=== PATIENT | female | born 1955 | race Caucasian/White ===

== ENCOUNTER 2017-06-18 09:13 | Day surgery (SDC) | payer BC ==
[2017-06-16 15:30] VITALS: BMI 22.5
[~2017-06-18 09:13] MED LIST: HYDROmorphone 0.5 MG/0.5 ML SYRINGE IVP PRN; LACTATED RINGERS 1,000 ML IV SCH; ONDANSETRON 4 MG/2 ML VIAL IVP PRN
[2017-06-18 09:40] VITALS: RESP 16; TEMP 97
[2017-06-18] MEDS ORDERED: PROPOFOL 10 MG/ML 20 ML VIAL IV ONE (10:31)
--- NOTE | 2017-06-18 10:51 | P.PCN ---
Date of Procedure: 06/18/17 Procedure(s) Performed: BRIEF HISTORY: Patient is a 62-year-old pleasant white female, scheduled for an elective colonoscopy as a part of evaluation of change in bowel habits. She is been having chronic diarrhea for several months duration. Usually has 3-4 loose watery bowel movements daily. Denies any blood or mucus in the stool. PROCEDURE PERFORMED: Colonoscopy with biopsies. PREOPERATIVE DIAGNOSIS: Chronic diarrhea IV sedation per Anesthesia. PROCEDURE: After informed consent was obtained, the patient, was brought into the endoscopy unit. IV sedation was administered by Anesthesia under continuous monitoring. Digital rectal examination was normal. Initially the Olympus CF- 160 flexible video colonoscope was then inserted in the rectum, gradually advanced into the cecum without any difficulty. Careful examination was performed as the scope was gradually being withdrawn. Ileocecal valve and the appendiceal orifice were visualized and appeared normal. Prep was excellent. Mucosa of the cecum, ascending colon, transverse colon, descending colon, sigmoid colon, and rectum appeared normal. Retroflexion was performed in the rectum and no lesions were seen. Random biopsies were done from ascending and descending colon to rule out microscopic/collagenous colitis. The patient tolerated the procedure well. IMPRESSION: Normal-appearing colon from rectum to cecum with no evidence of colitis or colorectal neoplasia.. RECOMMENDATIONS: Findings of this examination were discussed with the patient as well as a family. She was advised to follow with the biopsy results. She can have a repeat screening colonoscopy in 10 years..
[2017-06-18 11:13] VITALS: PULSE 73
[2017-06-18 11:31] VITALS: BP 114/62
[2017-06-18 18:37] LABS: Gliadin AB IgA, Unit 0.7 U/mL
== END 2017-06-18 11:54 | disposition home or self-care (01) ==
LOC: ORWHC2ENDO 09:13
PROVIDERS: ATTEND Internal Medicine Gastroenterology
DX: K52.9 Noninfective gastroenteritis and colitis, unspecified (principal); E07.9 Disorder of thyroid, unspecified; Z88.0 Allergy status to penicillin; Z88.2 Allergy status to sulfonamides; Z79.82 Long term (current) use of aspirin
CPT/HCPCS: 45380; 88305; 83516 ×4; J2704

== ENCOUNTER → 2018-02-24 | Outpatient (CLI) | payer BC ==
--- NOTE | 2018-02-25 07:08 | US ---
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 0.9 X 0.6 x 0.7 cm isoechoic solid nodule at the upper pole with poorly defined margins; . This nodule is wider than tall and shows intranodular vascularity. Prior size: no prior ISTHMUS: # of nodules measured in the isthmus: 0 Bilateral neck scanned, benign lymph nodes noted right neck Right gland is normal in size and fairly homogeneous in echotexture, there is 9 mm slightly hypoechoi c solid nodule left thyroid lobe marked by technologist. No suspicious neck adenopathy. IMPRESSION: Normal-sized thyroid without suspicious greater than 1.0 cm thyroid nodule identified.
== END | disposition home or self-care (01) ==
LOC: RADUSWWP 16:39
PROVIDERS: ATTEND Family Medicine
DX: E04.1 Nontoxic single thyroid nodule (principal)
CPT/HCPCS: 76536